=== PATIENT | female | born 1970 | race Asian ===

== ENCOUNTER 2018-07-02 17:20 | Emergency (ER) | payer OTHER ==
[2018-07-02 19:20] LABS: URINE BLOOD (Dip) POC Negative (NEGATIVE); URINE GLUCOSE (Dip) POC Negative (NEGATIVE); URINE KETONES (Dip) POC Negative (NEGATIVE); URINE LEUKOCYTE EST (Dip) POC Negative (NEGATIVE); URINE NITRITE (Dip) POC Negative (NEGATIVE); URINE TOTAL PROTEIN POC Negative (NEGATIVE)
== END 2018-07-02 20:17 | disposition home or self-care (01) ==
LOC: FTE 17:20
DX: G57.91 Unspecified mononeuropathy of right lower limb (principal); J45.909 Unspecified asthma, uncomplicated; I10 Essential (primary) hypertension
CPT/HCPCS: 72100; 81003; 99283-25